=== PATIENT | male | born 1990 | race Caucasian/White ===

== ENCOUNTER 2019-12-30 14:04 | Emergency (ER) | payer SELFPAY ==
[2019-12-30 14:31] VITALS: BMI 30.9
[2019-12-30 14:41] VITALS: BP 143/80; PULSE 88; RESP 99; BMI 30.9
[2019-12-30 14:50] VITALS: BP 143/80; PULSE 88; RESP 99; BMI 30.9
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
[2019-12-30 15:01] LABS: UR Morphine/Opiate cutoff 300 Negative (Negative); Ur Creatinine Normal (Normal); Ur Specific Gravity Normal (Normal); Urine Amphetamines Negative (Negative); Urine Barbiturates Negative (Negative); Urine Benzodiazepines Negative (Negative); Urine Cocaine Negative (Negative); Urine MDMA Negative (Negative); Urine Methadone Negative (Negative); Urine Methamphetamines Negative (Negative); Urine Oxycodone Negative (Negative); Urine Phencyclidine Negative (Negative); Urine Tetrahydrocannabinol Negative (Negative); Urine Tricyclic Antidepressant Negative (Negative); Urine pH Normal (Normal)
[2019-12-30 15:04] LABS: Add Manual Diff / Slide Review NO; Basophils Absolute Auto 100 /uL (0-100); Basophils Percent Auto 0.4 % (0-2); Eosinophils Absolute Auto 0 /uL (0-450); Hematocrit 47.4 % (41-53); Hemoglobin 16.8 g/dL (13.5-17.5); Lymphocytes Absolute Auto 1600 /uL (1100-4500); Lymphocytes Percent Auto 10.2 % (25-40); Mean Corpuscular HGB Conc 35.5 % (30-36); Mean Corpuscular Hemoglobin 34.3 PG (26-34); Mean Corpuscular Volume 96.6 fL (80-100); Monocytes Absolute Auto 1700 /uL (0-900); Monocytes Percent Auto 11.4 % (3-14); Neutrophils Absolute Auto 11900 /uL (1500-7000); Platelet Count 239 X10^3/uL (150-400); Red Blood Cell Count 4.91 X10^6/uL (4.5-5.9); Red Cell Distribution Width 12.3 % (11.6-14.8); White Blood Cell Count 15.2 X10^3/uL (4.5-11.0)
[2019-12-30 15:15] LABS: Acetaminophen < 10 ug/mL (10-30); Alanine Aminotransferase 115 IU/L (<50); Albumin 5.2 g/dL (3.5-5.0); Albumin Globulin Ratio 1.4 (1.0-2.8); Alkaline Phosphatase 95 U/L (38-126); Aspartate Aminotransferase 542 IU/L (17-59); Bilirubin Total 2.5 mg/dL (0.2-1.3); Blood Urea Nitrogen 27 mg/dL (9-20); Calcium 9.7 mg/dL (8.4-10.2); Carbon Dioxide 21 mmol/L (22-32); Chloride 104 mmol/L (98-107); Estimated Glomerular Filt Rate > 60.0 mL/min (>60); Ethanol (ETOH) < 10 mg/dL; Globulin 3.6 g/dL (1.7-4.1); Glucose 83 mg/dL (70-100); HEMOLYSIS < 15 (0-50); Potassium 3.4 mmol/L (3.4-5.1); Salicylate < 1.0 mg/dL (<20); Sodium 140 mmol/L (137-145); Total Protein 8.8 g/dL (6.3-8.2)
[2019-12-30 15:25] LABS: Bacteria Urine None Seen
--- NOTE | 2019-12-30 15:26 | DI.US.S_ITS ---
PROCEDURE: US ABDOMEN LIMITED INDICATIONS: ELEV LFT'S EVAL FOR GB PATHOLOGY TECHNIQUE: Real-time focused scanning was performed of the abdomen, with image documentation. COMPARISON: None. FINDINGS: Liver is within normal limits. No biliary ductal dilatation. Gallbladder is within normal limits. Pancreas is not well-seen. IMPRESSION: No acute process. Dictated by: Estuardo Talavera M.D. on 12/30/2019 at 16:17 Approved by: Estuardo Talavera M.D. on 12/30/2019 at 16:18
[2019-12-30 15:40] LABS: Free T4, Direct Thyroxine 1.24 ng/dL (0.78-2.19)
[2019-12-30 15:52] LABS: Lipase 159 U/L (23-300)
[2019-12-30 15:54] LABS: Thyroid Stimulating Hormone 0.85 uIU/mL (0.47-4.68)
[2019-12-30 15:59] LABS: Bilirubin Urine UA 2+ (NEGATIVE); Color Urine UA YELLOW; Glucose Urine UA NEGATIVE (Negative); Ketones Urine UA 3+ (NEGATIVE); Leukocyte Esterase Urine UA NEGATIVE (NEGATIVE); Nitrite Urine UA NEGATIVE (Negative); Occult Blood Urine UA 2+ (Negative); Protein Urine UA 1+ (Negative); Specific Gravity Urine UA >=1.030 (1.000-1.035); Urobilinogen Urine UA 0.2 E.U./dL (0.2); pH Urine UA 5.5 (4.5-8.0)
[2019-12-30 16:03] LABS: Appearance Urine UA Slightly Cloudy
[2019-12-30 16:06] LABS: Amorphous Sediment Urine 1+; Ictotest Urine Positive (Negative); Mucus Urine 2+ (Negative); RBC Urine 0-1/HPF (0-5/HPF); Squamous Epithelial Cell Urine 0-1 /HPF (0-5/HPF); WBC Urine 0-1/HPF (0-5/HPF)
[2019-12-30 16:07] LABS: Culture Indicated Urine Cult Not Indicated
--- NOTE | 2019-12-30 17:05 | PC.NURSE ---
Patient said he was wearing contacts that were bluetooth and was wondering if they would affect the ultrasound. I told him I'd check in on that, and got the patient fresh ice water. He remains calm but odd.
[2019-12-30 18:56] VITALS: BP 139/74; PULSE 100; RESP 20; TEMP 37.1
--- NOTE | 2019-12-30 19:27 | PC.NURSE ---
Pt cooperative and calm however continues to have flight of ideas and is unable to complete full conversation. Encouraging po fluids and food. Called [facility] for involuntary evaluation. Medical clearance form faxed / received (confirmed by intake / triage).
--- NOTE | 2019-12-30 19:42 | PC.NURSE ---
Calling other hospitals for medical records. Pt states he does not have an address or social security number. When asked his name, he looks at his wrist band.
--- NOTE | 2019-12-30 20:45 | PC.NURSE ---
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 RN notified.
[2019-12-30 21:42] VITALS: BP 121/71; PULSE 88; RESP 19; TEMP 37.1
== END 2019-12-30 21:53 | disposition home or self-care (01) ==
PROVIDERS: Emergency Provider Emergency Medicine
DX: F43.20 Adjustment disorder, unspecified (principal); R44.3 Hallucinations, unspecified; R79.89 Other specified abnormal findings of blood chemistry
CPT/HCPCS: 36415; 76705; 80053; 80305; 80320; 80329; 81001; 83690; 84439; 84443; 85025; 99284; G0480